=== PATIENT | male | born 1965 | race Caucasian/White ===

== ENCOUNTER 2020-05-25 12:53 | Outpatient (REF) | payer OTHER, SELFPAY | END 2020-05-25 12:54 | disposition home or self-care (01) | LOC: HO.BBR 12:53 | PROVIDERS: Visit Provider Internal Medicine | DX: D45 Polycythemia vera (principal) | CPT/HCPCS: 85018; 99195 ==

== ENCOUNTER 2020-08-24 11:44 | Outpatient (REF) | payer OTHER, SELFPAY | END 2020-08-24 11:45 | disposition home or self-care (01) | LOC: HO.BBR 11:44 | PROVIDERS: Visit Provider Internal Medicine | DX: D75.1 Secondary polycythemia (principal) | CPT/HCPCS: 85018; 99195 ==

== ENCOUNTER 2020-11-29 13:14 | Outpatient (REF) | payer OTHER, SELFPAY | END 2020-11-29 13:15 | disposition home or self-care (01) | LOC: HO.BBR 13:14 | PROVIDERS: Visit Provider Internal Medicine | DX: D75.1 Secondary polycythemia (principal) | CPT/HCPCS: 85014; 85018; 99195 ==

== ENCOUNTER 2021-05-01 10:23 | Outpatient (REF) | payer OTHER, SELFPAY | END 2021-05-01 10:24 | disposition home or self-care (01) | LOC: HO.BBR 10:23 | PROVIDERS: Visit Provider Internal Medicine | DX: D75.1 Secondary polycythemia (principal) | CPT/HCPCS: 85018; 99195 ==

== ENCOUNTER 2021-09-04 13:59 | Outpatient (REF) | payer OTHER, SELFPAY | END 2021-09-04 14:00 | disposition home or self-care (01) | LOC: HO.BBR 13:59 | PROVIDERS: Visit Provider Internal Medicine | DX: D75.1 Secondary polycythemia (principal) | CPT/HCPCS: 85018; 99195 ==

== ENCOUNTER 2021-12-19 13:53 | Outpatient (REF) | payer OTHER, SELFPAY | END 2021-12-19 13:54 | disposition home or self-care (01) | LOC: HO.BBR 13:53 | PROVIDERS: Visit Provider Internal Medicine | DX: D75.1 Secondary polycythemia (principal) | CPT/HCPCS: 85018; 99195 ==

== ENCOUNTER 2022-04-09 12:53 | Outpatient (REF) | payer OTHER, SELFPAY | END 2022-04-09 12:54 | disposition home or self-care (01) | LOC: HO.BBR 12:53 | PROVIDERS: Visit Provider Internal Medicine | DX: D75.1 Secondary polycythemia (principal) | CPT/HCPCS: 85014; 85018; 99195 ==

== ENCOUNTER 2022-09-13 10:52 | Outpatient (REF) | payer OTHER, SELFPAY | END 2022-09-13 10:53 | disposition home or self-care (01) | LOC: HO.BBR 10:52 | PROVIDERS: Visit Provider Internal Medicine | DX: D45 Polycythemia vera (principal) | CPT/HCPCS: 85018; 99195 ==

== ENCOUNTER 2023-11-27 10:11 | Outpatient (REF) | payer OTHER, SELFPAY | END 2023-11-27 10:12 | disposition home or self-care (01) | LOC: HO.BBR 10:11 | PROVIDERS: Visit Provider Internal Medicine | DX: D45 Polycythemia vera (principal) | CPT/HCPCS: 85018; 99195 ==

== ENCOUNTER 2024-02-27 10:57 | Outpatient (REF) | payer OTHER, SELFPAY | END 2024-02-27 10:58 | disposition home or self-care (01) | LOC: HO.BBR 10:57 | PROVIDERS: PCP Internal Medicine; Visit Provider Internal Medicine | DX: D45 Polycythemia vera (principal) | CPT/HCPCS: 85018; 99195 ==

== ENCOUNTER 2024-06-03 13:01 | Outpatient (REF) | payer OTHER, SELFPAY | END 2024-06-03 13:02 | disposition home or self-care (01) | LOC: HO.BBR 13:01 | PROVIDERS: PCP Internal Medicine; Visit Provider Internal Medicine | DX: D45 Polycythemia vera (principal) | CPT/HCPCS: 85014; 85018; 99195 ==

== ENCOUNTER 2024-09-01 12:56 | Outpatient (REF) | payer OTHER, SELFPAY ==
--- OUTSIDE RECORDS SUMMARY | 2024-09-01 15:46 | XMS_ITS | Clinical Summary ---
Author Organization [facility] Address [address] [place] [address] Care Team Providers Care Tipple Supervisor Name Role Phone Tyler Cheney MD Primary Care Provider [phone] Allergies No known active allergies Medications Medication Sig Dispensed Refills Start Date End Date Status cyclobenzaprine (FLEXERIL) 10 MG tablet Take 1 tablet (10 mg total) by mouth 3 (three) times a day as needed for muscle spasms. 0 Active albuterol (PROVENTIL HFA;VENTOLIN HFA) 108 (90 Base) MCG/ACT inhaler Inhale 2 puffs into the lungs every 6 (six) hours as needed for wheezing. 0 Active vitamin D3 (VITAMIN D3) 10 MCG (400 UNIT) tablet Take 1 tablet (400 Units total) by mouth daily. 0 Active Acetaminophen (TYLENOL 8 HOUR PO) Take 500 mg by mouth every 8 (eight) hours. 0 Active aspirin EC 81 MG tablet Take 1 tablet (81 mg total) by mouth daily. 0 Active Active Problems No known active problems Family History Medical History Relation Name Comments Cancer Maternal Grandfather Diabetes Maternal Grandfather Diabetes Maternal Grandmother Relation Name Status Comments Maternal Grandfather Maternal Grandmother Social History Tobacco Use Types Packs/Day Years Used Date Smoking Tobacco: Every Day Smokeless Tobacco: Never Alcohol Use Standard Drinks/Week Comments Yes 0 (1 standard drink = 0.6 oz pur e alcohol) Sex and Gender Information Value Date Recorded Sex Assigned at Not on file Gender Identity Not on file Sexual Orientation Not on file Job Start Date Occupation Industry Not on file Not on file Not on file Last Filed Vital Signs Vital Sign Reading Time Taken Comments Blood Pressure 151/103 11/26/2023 11:15 AM EDT Pulse 78 11/26/2023 11:15 AM EDT Temperature 36.8 ??C (98.2 ??F) 11/26/2023 1 1:15 AM EDT Respiratory Rate - - Oxygen Saturation 94% 11/26/2023 11: 15 AM EDT Inhaled Oxygen Concentration - - Weight 112.9 kg (248 lb 12.8 oz) 2023 11:15 AM EDT Height 170.2 cm (5' 7 ) 04/30/2023 1:35 PM EST Body Mass Index 38.97 04/30/2023 1:35 PM EST Plan of Treatment Health Maintenance Due Date Last Done Comments Hepatitis C Screening 1965 COVID-19 Vaccine (#1) 01/11/1969 Pneumococcal Vaccine (1 of 2 - PCV) 01/11/1970 Depression Screening 1976 Preventative Health Evaluation 01/11/1982 Shingrix-Zoster Vaccine (1 of 2) 01/11/1983 Colon Cancer Screening (Colonoscopy) 01/11/2009 DTap / Tdap / Td (2 - Td or Tdap) 06/30/2023 014 Influenza Vaccine (#1) 2024 RSV Adult > 60+ Yrs or Pregn ant (1 - 1-dose 75+ series) 01/11/2039 Hepatitis B Vaccines Aged Out No long er eligible based on patient's age to complete this topic RSV Ped < 20 months Aged Out No longe r eligible based on patient's age to complete this topic Care Teams Tipple Supervisor Relationship Specialty Start Date End Date Tyler Cheney MD PCP - General Internal Medicine 03/11/17
--- OUTSIDE RECORDS SUMMARY | 2024-09-01 15:46 | XMS_ITS | Clinical Summary ---
Author Organization [facility] Address [address] [place] [address] Phone Care Team Providers Care Car Barn Laborer Name Role Phone yTler Cheney MD Primary Care Provider [phone] Allergies No known active allergies Medications acetaminophen (TYLENOL 8 HOUR ORAL) Take 500 mg by mouth every 8 hours. Active albuterol HFA (Ventolin HFA) 90 mcg/actuation inhaler INHALE 2 PUFFS INTO THE LUNGS EVERY 4 HOURS NEEDED FOR COUGH OR WHEEZING. 04/22/2023 Active aspirin 81 mg EC tablet Take 1 tablet (81 mg total) by mouth 1 (one) time each day. Active cholecalciferol (VITAMIN D-3) 10 mcg (400 unit) tablet Take 1 tablet (400 Units total) by mouth 1 (one) time each day. Active cyclobenzaprine (FLEXERIL) 10 mg tablet Take 1 tablet (10 mg total) by mouth 3 times daily as needed for muscle spasms. Active Encounters Date Type Department Care Team Description 07/27/2024 9:45 AM EST Office Visit [facility] Hematology Oncology [address] [place] [address] Dwaine Adrian MD Polycythemia (Primary Dx) from Last 3 Months Surgical History Surgery Date Site/Laterality Comments APPENDECTOMY PROCEDURE: HISTORICAL APPENDECTOMY; COMMENT: age 24 COLONOSCOPY 2014 PROCEDURE: HISTORICAL COLONOSCOPY; COMMENT: 5 mm polyps x 2; diverticulosis. Diminutive tubular adenomas x2. COLONOSCOPY 12/21/2019 PROCEDURE: HISTORICAL COLONOSCOPY; COMMENT: Diverticulosis, no polyps, next colonoscopy indicated in 7 years. Medical History Medical History Date Comments History of vertebral edi rebecca fracture 04/08/2014 DX:History of vertebral comp ression fracture; COMMENT: 04/09-mri thoracic multiple chronic compression fractures t7-9 and mild post disc bulging with neural foraminal narrowing. Family History Medical History Relation Name Comments Hypertension Maternal Grandfather Prostate cancer Maternal Grandfather Hypertension Maternal Grandmother Other: Other Maternal Grandmother Anuel ons Other: Other Mother hip problems Relation Name Status Comments Father Alive not in contact Maternal Grandfather Maternal Grandmother Mother Alive Sister Alive 2, healthy Social History Tobacco Use Types Packs/Day Years Used Date Smoking Tobacco: Every Day Cigarettes Smokeless Tobacco: Never Tobacco Cessation:Ready to Q uit: Not Asked; Counseling Given: Not Answered Alcohol Use Standard Drinks/Week Comments Yes 0 (1 standard drink = 0.6 oz pur e alcohol) Sex and Gender Information Value Date Recorded Sex Assigned at Not on file Legal Sex Male 4:00 PM EST Gender Identity Not on file Sexual Orientation Not on file Obstetrics History Last Filed Vital Signs Vital Sign Reading Time Taken Comments Blood Pressure 164/89 07/27/2024 9:49 AM EST Pulse 82 07/27/2024 9:49 AM EST Temperature 36.7 ??C (98 ??F) 07/27/2024 9:49 AM EST Respiratory Rate - - Oxygen Saturation 97% 07/27/2024 9:49 AM EST Inhaled Oxygen Concentration - - Weight 96.6 kg (213 lb) 07/27/2024 9:49 AM EST Height 175.3 cm (5' 9 ) 02/18/2024 2:53 PM EDT Body Mass Index 31.45 02/18/2024 2:53 PM EDT Plan of Treatment Upcoming Encounters Date Type Department Care Team (Late st Contact Info) Description 05/11/2025 1:45 PM EST Office Visit [facility] Hematology Oncology [address] [place] [phone] Dwaine Adrian MD [address] [place] [address] Health Maintenance Due Date Last Done Comments COVID-19 Vaccine (#1) 01/11/1969 Pneumococcal Vaccine: 50+ Years (1 of 2 - PCV) 01/11/1983 Pneumococcal Vaccine: Pediatrics (0 to 5 Years) and At-Risk Patients (6 to 64 Years) (1 of 2 - PCV) 01/11/1983 Zoster Vaccines (1 of 2) 01/11/1983 Colorectal Cancer Screening: Colonoscopy 05/05/2022 Depression Screening 05/05/2022 HIV Screening 05/05/2022 Hepatitis C Screening 05/05/2022 Lung Cancer Screening (Low Dose CT) 05/05/2022 Social Influencers of Health Screening 05/05/2022 RSV Immunization Adult Patients (1 - Risk 60-74 years 1-dose series) 2024 Influenza Vaccine (#1) 2024 Hypertension/CHF/CAD Annual BMP Blood Test 02/17/2025 02/18/2024 Cholesterol Screening (Lipid Panel) 02/17/2029 02/18/2024 DTaP,Tdap,and Td Vaccines (3 - Td or Tdap) 02/17/2034 02/18/2024, 06/30/2013 HIB Vaccines Aged Out No longer eligi ble based on patient's age to complete this topic HPV Vaccines Aged Out No longer eligi ble based on patient's age to complete this topic Hepatitis A Vaccines Aged Out No long er eligible based on patient's age to complete this topic Hepatitis B Vaccines Aged Out No long er eligible based on patient's age to complete this topic IPV Vaccines Aged Out No longer eligi ble based on patient's age to complete this topic MMR Vaccines Aged Out No longer eligi ble based on patient's age to complete this topic Meningococcal ACWY Vaccine Aged Out N o longer eligible based on patient's age to complete this topic Meningococcal B Vaccine Aged Out No l onger eligible based on patient's age to complete this topic RSV Immunization Patients Under 20 months Aged Out No longer eligible b ased on patient's age to complete this topic Varicella Vaccines Aged Out No longer eligible based on patient's age to complete this topic Procedures Procedure Name Priority Date/Time Associated Diagnosis Comments ..MISCELLANEOUS REFERENCE LAB TEST 07/27/2024 ..MISCELLANEOUS REFERENCE LAB TEST 07/27/2024 from Last 3 Months Results * Miscellaneous reference lab test (07/27/2024) Only the most recent of2 resultswithin the time period is included. us Provider Onbase MD LAB BLOOD ORDERABLES Final Re sult from Last 3 Months Insurance MEDICAID - [place] Care Teams Car Barn Laborer Relationship Specialty Start Date End Date Tyler Cheney MD [address] [place] [phone] PCP - General Internal Medicine 08/31/15
== END 2024-09-01 12:57 | disposition home or self-care (01) ==
LOC: HO.BBR 12:56
PROVIDERS: PCP Internal Medicine; Visit Provider Internal Medicine
DX: D45 Polycythemia vera (principal)
CPT/HCPCS: 85014; 85018; 99195

== ENCOUNTER 2024-12-01 13:52 | Outpatient (REF) | payer OTHER, SELFPAY ==
--- OUTSIDE RECORDS SUMMARY | 2024-12-01 14:43 | XMS_ITS | Encounter Summary ---
Author Organization [facility] Address [id number] [place] [phone] Care Team Providers Care Certified Diabetes Educator Name Role Phone Tyler Cheney MD Primary Care Provider [phone] Encounter Details Date Type Department Care Team (Late st Contact Info) Description 11/12/2024 Telephone Internal Medicine - [address] [phone] Tyler Cheney MD [address] [place] [phone] Social History Tobacco Use Types Packs/Day Years Used Date Smoking Tobacco: Every Day Cigarettes Smokeless Tobacco: Never Alcohol Use Standard Drinks/Week Comments Yes 0 (1 standard drink = 0.6 oz pur e alcohol) Sex and Gender Information Value Date Recorded Sex Assigned at Not on file Legal Sex Male 4:00 PM EST Gender Identity Not on file Sexual Orientation Not on file documented as of this encounter Progress Notes * Crystal Kitchen - 11/12/2024 4:25 PM EDT Caller requesting call back from provider: Is the caller the patient? no If caller is not the patient, what is the callers name? Taylor Callers relationship to patient? [facility] Pulil Reason for call back: [facility] calling for mutual patient , from pulmonary would like a call from to discuss patient. Would like a call to [phone] Caller offered to speak with the nurse for assistance: YES Response: Patient offered to speak with nurse for assistance and patient agreed. Message forwardedto nurse. documented in this encounter Plan of Treatment Upcoming Encounters Date Type Department Care Team (Late st Contact Info) Description 05/11/2025 1:45 PM EST Office Visit [facility] Hematology Oncology [address] [place] [address] Dwaine Adrian MD [address] [place] [address] documented as of this encounter Visit Diagnoses Not on filedocumented in this encounter Care Teams Certified Diabetes Educator Relationship Specialty Start Date End Date Tyler Cheney MD [address] [place] [phone] PCP - General Internal Medicine 08/31/15 documented as of this encounter
--- OUTSIDE RECORDS SUMMARY | 2024-12-01 14:43 | XMS_ITS | Clinical Summary ---
Author Organization [facility] Address [address] [place] [address] Care Team Providers Care Map Plotter Name Role Phone Tyler Cheney MD Primary Care Provider [phone] Allergies No known active allergies Medications Medication [...] 78 11/26/2023 11:15 AM EDT Temperature 36.8 C (98.2 F) 11/26/2023 11:15 AM EDT Respiratory Rate - - Oxygen [...] or Tdap) 06/30/2023 014 Influenza Vaccine (#1) 2025 RSV Adult > 60+ Yrs or Pregn ant (1 - 1-dose 75+ series) 01/11/2039 Hepatitis B Vaccines Aged Out No long er eligible based on patient's age to complete this topic RSV Ped < 20 months Aged Out No longe r eligible based on patient's age to complete this topic Care Teams Map Plotter Relationship Specialty Start Date End Date Tyler Cheney MD PCP - General Internal Medicine 03/11/17
== END 2024-12-01 13:53 | disposition home or self-care (01) ==
LOC: HO.BBR 13:52
PROVIDERS: PCP Internal Medicine; Visit Provider Internal Medicine
DX: D45 Polycythemia vera (principal)
CPT/HCPCS: 85018; 99195